=== PATIENT | female | born 1990 | race American Indian/Alaskan Native ===

== ENCOUNTER 2017-04-27 02:56 | Emergency (ER) | payer OTHER ==
[2017-04-27 07:21] LABS: Bacteria,Urine 1+ /HPF (Negative); Bilirubin,Urine NEG (Negative); Blood,Urine NEG (Negative); Color,Urine Yellow (Yellow); Mucus,Urine FEW /HPF; Nitrite,Urine NEG (Negative); Protein,Urine <15 mg/dL mg/dL (Negative); Urobilinogen,Urine < 2.0 mg/dL (<2.0)
[2017-04-27 07:22] LABS: HCG Qualitative,Urine Negative (Negative)
[2017-04-27 08:18] LABS: Hematocrit 35.6 % (30.3-42.9); Hemoglobin 11.1 gm/dl (10.1-14.3); Mean Corpuscular HGB Conc 31 % (30-34); Mean Corpuscular Hemoglobin 21 pg (28-32); Mean Corpuscular Volume 69 fl (79-97); Platelet Count 328 K/mm3 (140-440); Red Blood Count 5.19 M/mm3 (3.65-5.03)
[2017-04-27 08:39] LABS: Alanine Aminotransferase 12 units/L (7-56); Albumin 4.2 g/dL (3.9-5); BUN/Creatinine Ratio 17; Blood Urea Nitrogen 12 mg/dL (7-17); Calcium 9.1 mg/dL (8.4-10.2); Hemolysis Index 3; Lipase 28 units/L (13-60)
[2017-04-27 08:44] LABS: Bilirubin,Direct < 0.2 mg/dL (0-0.2)
[2017-04-27] MEDS ORDERED: NACL 0.9% 1000 ML 1,000 ML IV ONE (08:59)
--- NOTE | 2017-04-27 09:04 | Emergency Department Report ---
ED Abdominal Pain HPI - General Chief Complaint: Urogenital-Female Stated Complaint: ABDOMINAL,BACK PAIN Time Seen by Provider: 04/27/17 08:41 Source: patient Mode of arrival: Ambulatory Limitations: No Limitations - History of Present Illness Initial Comments: This is a 26-year-old female nontoxic, well nourished in appearance, no acute signs of distress presents to the ED with c/o of pelvic pain and umbilical pain 1 week. Patient describes pain as aching and sensation of fluttering. Patient states has nausea but denies any vomiting. Patient also is complaining about vaginal discharge and describes it as white in color with foul odor. Patient stated she had protective sex prior to discharge. Patient denies any chest pain, shortness of breath, fever, chills, vomiting, dysuria, polyuria, hematuria, headache, stiff neck, numbness, tingling or back pain. Patient states allergies to Ceclor. Past medical history includes endometriosis. MD Complaint: abdominal pain -: week(s) (1) Location: periumbilical Radiation: none Migration to: no migration Severity: mild Severity scale (0 -10): 8 Quality: aching, other (fluttering) Consistency: constant Improves With: nothing Worsens With: nothing Associated Symptoms: nausea. denies: vomiting, diarrhea, fever, chills, constipation, dysuria, hematemesis, hematochezia, melena, hematuria, anorexia, syncope - Related Data Previous Rx's Medication Instructions Recorded Last Taken Type Albuterol Sulfate [Ventolin HFA] 2 puff IH Q4H PRN #1 hfa.aer.ad 08/02/15 Unknown Rx Doxycycline [Vibramycin CAP] 100 mg PO Q12HR #20 capsule 08/02/15 Unknown Rx Loratadine [Claritin] 10 mg PO DAILY #10 tablet 08/02/15 Unknown Rx Promethazine /Codeine 5 ml PO Q6H PRN #120 udc 08/02/15 Unknown Rx [Phenergan/Codeine 6.25-10 mg/5 ml] metroNIDAZOLE [Flagyl] 500 mg PO Q12HR #14 tab 04/27/17 Unknown Rx Allergies Allergy/AdvReac Type Severity Reaction Status Date / Time cefaclor [From Ceclor] Allergy Unknown Verified 08/01/15 21:52 ED Review of Systems ROS: Stated complaint: ABDOMINAL,BACK PAIN Other details as noted in HPI Constitutional: denies: chills, fever Eyes: denies: eye pain, eye discharge, vision change ENT: denies: ear pain, throat pain Respiratory: denies: cough, shortness of breath, wheezing Cardiovascular: denies: chest pain, palpitations Endocrine: no symptoms reported Gastrointestinal: denies: abdominal pain, nausea, diarrhea Genitourinary: discharge. denies: urgency, dysuria Musculoskeletal: denies: back pain, joint swelling, arthralgia Skin: denies: rash, lesions Neurological: denies: headache, weakness, paresthesias Psychiatric: denies: anxiety, depression Hematological/Lymphatic: denies: easy bleeding, easy bruising ED Past Medical Hx - Past Medical History Previous Medical History?: Yes Additional medical history: endometriosis - Surgical History Past Surgical History?: Yes Additional Surgical History: surgery for endometriosis - Social History Smoking Status: Never Smoker - Medications Home Medications: Home Medications Medication Instructions Recorded Confirmed Last Taken Type Albuterol Sulfate [Ventolin HFA] 2 puff IH Q4H PRN #1 hfa.aer.ad 08/02/15 Unknown Rx Doxycycline [Vibramycin CAP] 100 mg PO Q12HR #20 capsule 08/02/15 Unknown Rx Loratadine [Claritin] 10 mg PO DAILY #10 tablet 08/02/15 Unknown Rx Promethazine /Codeine 5 ml PO Q6H PRN #120 udc 08/02/15 Unknown Rx [Phenergan/Codeine 6.25-10 mg/5 ml] metroNIDAZOLE [Flagyl] 500 mg PO Q12HR #14 tab 04/27/17 Unknown Rx ED Physical Exam - General Limitations: No Limitations General appearance: alert, in no apparent distress - Head Head exam: Present: atraumatic, normocephalic, normal inspection - Eye Eye exam: Present: normal appearance, PERRL, EOMI. Absent: scleral icterus, conjunctival injection, nystagmus, periorbital swelling, periorbital tenderness Pupils: Present: normal accommodation - ENT ENT exam: Present: normal exam, normal orophraynx, mucous membranes moist, TM's normal bilaterally, normal external ear exam - Neck Neck exam: Present: normal inspection, full ROM. Absent: tenderness, meningismus, lymphadenopathy, thyromegaly - Respiratory Respiratory exam: Present: normal lung sounds bilaterally. Absent: respiratory distress, wheezes, rales, rhonchi, stridor, chest wall tenderness, accessory muscle use, decreased breath sounds, prolonged expiratory - Cardiovascular Cardiovascular Exam: Present: regular rate, normal rhythm, normal heart sounds. Absent: bradycardia, tachycardia, irregular rhythm, systolic murmur, diastolic murmur, rubs, gallop - GI/Abdominal GI/Abdominal exam: Present: soft, tenderness (pelvic and periumbilical), normal bowel sounds. Absent: distended, guarding, rebound, rigid, diminished bowel sounds - Expanded GI/Abdominal Exam Expanded GI/Abdominal exam: Absent: psoas sign, obturator sign, heel tap sign, Beatty's sign, Rovsing's sign, tenderness at Mcburney's Point, ascites - Rectal Rectal exam: Present: deferred - External exam: Present: normal external exam, other (nailing machine feeder Che RN present during exam). Absent: erythema, swelling, lesions, lacerations, ecchymosis, bleeding Speculum exam: Present: normal speculum exam, cervical discharge (yellow/white with foul odor), other (nailing machine feeder Magdalene RN present during exam). Absent: erythema, vaginal discharge, vaginal bleeding, foreign body, tissue, laceration Bi-manual exam: Present: normal bi-manual exam, other (nailing machine feeder Magdalene RN present during exam). Absent: cervical motion tendernes, adnexal tenderness, adnexal mass, uterine enlargement, uterine tenderness - Extremities Exam Extremities exam: Present: normal inspection, full ROM, normal capillary refill. Absent: tenderness, pedal edema, joint swelling, calf tenderness - Back Exam Back exam: Present: normal inspection, full ROM. Absent: tenderness, CVA tenderness (R), CVA tenderness (L), muscle spasm, paraspinal tenderness, vertebral tenderness, rash noted - Neurological Exam Neurological exam: Present: alert, oriented X3, CN II-XII intact, normal gait, reflexes normal - Psychiatric Psychiatric exam: Present: normal affect, normal mood - Skin Skin exam: Present: warm, dry, intact, normal color. Absent: rash ED Course Vital Signs 04/27/17 04/27/17 04:16 05:21 Temperature 98.1 F 98.1 F Pulse Rate 76 78 Respiratory 18 20 Rate Blood Pressure 110/57 110/57 O2 Sat by Pulse 100 100 Oximetry - Reevaluation(s) Reevaluation #1: 04/27/17 09:06 Follow-up with a primary care doctor in 3-5 days or if symptoms worsen and continue return to emergency room as soon as possible. ED Medical Decision Making - Lab Data Result diagrams: 04/27/17 07:58 04/27/17 07:58 - Medical Decision Making This is a 26-year-old female that presents with abdominal pain and BV. Patient is stable and was examined by me. Labs obtained within normal limits. CT with contrast of abdomen/pelvis has been obtained and dictated a radiologist with normal exam. Patient is notified of x-ray results with no questions noted by the patient. Patient received 1 L of normal saline and 15 mg Toradol which persisted his symptoms of abdominal/pelvis pain has been improving and is subsided. Patient reieved Flagyl at d/c and was instructed not to consume any alcohol while taking Flagyl. A by mouth challenge has been obtained and patient are well with no nausea or vomiting. Wet prep obtained and gonorrhea chlamydia pending. Patient was instructed to return in 3 days to obtain results of gonorrhea or chlamydia. Patient states she does not want be treated empirically as she stated she is not concerned about STD related. Patient was instructed Follow-up with a primary care doctor in 3-5 days or if symptoms worsen and continue return to emergency room as soon as possible. At time time of discharge, the patient does not seem toxic or ill in appearance. No acute signs of distress noted. Patient agrees to discharge treatment plan of care. No further questions noted by the patient. This chart is dictated with using Your[employer] Dictation Program Critical care attestation.: If time is entered above; I have spent that time in minutes in the direct care of this critically ill patient, excluding procedure time. ED Disposition Clinical Impression: Bacterial vaginosis Abdominal pain Qualifiers: Abdominal location: unspecified location Qualified Code(s): R10.9 - Unspecified abdominal pain Disposition: TO HOME OR SELFCARE Is pt being admited?: No Does the pt Need Aspirin: No Condition: Stable Instructions: Metronidazole (By mouth), Bacterial Vaginosis (ED) Additional Instructions: Follow-up with a primary care doctor in 3-5 days or if symptoms worsen and continue return to emergency room as soon as possible. Do not consume any alcohol while taking antibiotics Prescriptions: metroNIDAZOLE [Flagyl] 500 mg PO Q12HR #14 tab Referrals: [facility] [Other] - 3-5 Days PRIMARY CARE, [Referring] - 3-5 Days [facility] [Outside] - 3-5 Days [facility] [Outside] - 3-5 Days Forms: STI Treatment and Prevention, Work/School Release Form(ED)
[2017-04-27 09:38] LABS: Total Cells Counted 100
[2017-04-27 09:39] LABS: Anisocytosis 1+; Basophils % (Manual) 0 % (0.0-1.8); Eosinophils % (Manual) 0 % (0.0-4.3); Hypochromasia 1+; Ovalocytes 1+; Stomatocytes Few; Target Cells Few
--- NOTE | 2017-04-27 11:30 | Cat Scan Report ---
CT ABDOMEN PELVIS WITH CONTRAST: HISTORY: abdominal pain. COMPARISON: none. TECHNIQUE: Helical CT in 1.25mm intervals following IV contrast. Sagittal and coronal reconstructions. FINDINGS: Lung bases: Normal. Liver: Normal. Biliary system: Normal. Pancreas: Normal. Spleen: Normal. Kidneys/ureters/bladder: Normal. Adrenal glands: Normal. Aorta: Normal. Intestines: Normal. Appendix: Normal. Pelvic viscera: Normal. Ascites: None. Adenopathy: None. Musculoskeletal: Normal. IMPRESSION: Unremarkable CT scan of the abdomen and pelvis with contrast.
[2017-04-27 12:18] VITALS: BP 127/68
== END 2017-04-27 12:20 | disposition home or self-care (01) ==
LOC: ED 02:56
DX: N76.0 Acute vaginitis (principal); B96.89 Other specified bacterial agents as the cause of diseases classified elsewhere; Z88.1 Allergy status to other antibiotic agents
CPT/HCPCS: 36415; 74177; 80048; 80074; 81001; 81025; 82150; 83690; 85007; 85025; 87086; 87210; 87591; 96360; 99284; J7030; Q9967

== ENCOUNTER 2018-01-09 20:51 | Emergency (ER) | payer OTHER ==
[2018-01-09 21:30] VITALS: BP 158/81
[2018-01-09] MEDS ORDERED: MOTRIN PO ONE ×2 (21:44→21:46)
--- NOTE | 2018-01-09 22:18 | Emergency Department Report ---
HPI - General Chief Complaint: Upper Respiratory Infection Time Seen by Provider: 01/09/18 22:07 - HPI HPI: Room 29 The patient is a 27-year-old female presenting with a chief complaint of cough and body aches. The patient states last night she developed cough productive of brown sputum as well as subjective fever and body aches. Patient states she had a sore throat yesterday which is still present currently but does not hurt as bad. Patient admits to slight rhinorrhea. Patient denies any sick contacts. Location: See above Duration: Onset yesterday Quality: Body aches Severity: Moderate Modifying factors: [see above] Context: [see above] Mode of transportation: Unknown ED Past Medical Hx - Past Medical History Previous Medical History?: No Additional medical history: endometriosis - Surgical History Additional Surgical History: surgery for endometriosis - Family History Family history: no significant - Social History Smoking Status: Never Smoker Substance Use Type: None (denies illicit drug use), Alcohol (occasional) - Medications Home Medications: Home Medications Medication Instructions Recorded Confirmed Last Taken Type Albuterol Sulfate [Ventolin HFA] 2 puff IH Q4H PRN #1 hfa.aer.ad 08/02/15 Unknown Rx Doxycycline [Vibramycin CAP] 100 mg PO Q12HR #20 capsule 08/02/15 Unknown Rx Loratadine [Claritin] 10 mg PO DAILY #10 tablet 08/02/15 Unknown Rx Promethazine /Codeine 5 ml PO Q6H PRN #120 udc 08/02/15 Unknown Rx [Phenergan/Codeine 6.25-10 mg/5 ml] metroNIDAZOLE [Flagyl] 500 mg PO Q12HR #14 tab 04/27/17 Unknown Rx Azithromycin [Zithromax Z-EMA] 0 mg PO DAILY #6 tab 01/09/18 Unknown Rx Ibuprofen [Motrin 800 MG tab] 800 mg PO Q8HR PRN #20 tablet 01/09/18 Unknown Rx traMADol [Ultram] 50 mg PO Q6HR PRN #10 tablet 01/09/18 Unknown Rx ED Review of Systems ROS: Stated complaint: SOB,FEVER,SORE THROAT Other details as noted in HPI Constitutional: fever (subjective), malaise Eyes: denies: eye pain ENT: throat pain Respiratory: cough Cardiovascular: denies: chest pain Endocrine: no symptoms reported Gastrointestinal: denies: abdominal pain Genitourinary: denies: dysuria Musculoskeletal: myalgia Neurological: headache Physical Exam - Physical Exam Vital Signs: Vital Signs 01/09/18 01/09/18 21:27 22:01 Temperature 99.2 F Pulse Rate 101 H Respiratory 20 18 Rate Blood Pressure 158/81 O2 Sat by Pulse 100 Oximetry Physical Exam: GENERAL: The patient is well-developed well-nourished female sitting in chair not appearing to be in acute distress. [] HEENT: Normocephalic. Atraumatic. Extraocular motions are intact. Patient has moist mucous membranes. Oropharynx clear. NECK: Supple. No meningitic signs are noted. Trachea midline CHEST/LUNGS: Clear to auscultation. There is no respiratory distress noted. HEART/CARDIOVASCULAR: Regular. There is no tachycardia. There is no gallop rub or murmur. ABDOMEN: There is no abdominal distention. SKIN: There is no rash. There is no edema. There is no diaphoresis. NEURO: The patient is awake, alert, and oriented. The patient is cooperative. The patient has normal speech MUSCULOSKELETAL: There is no evidence of acute injury. ED Course Vital Signs 01/09/18 01/09/18 21:27 22:01 Temperature 99.2 F Pulse Rate 101 H Respiratory 20 18 Rate Blood Pressure 158/81 O2 Sat by Pulse 100 Oximetry ED Medical Decision Making - Lab Data Laboratory Tests 01/09/18 22:00 Influenza A (Rapid) Negative Influenza B (Rapid) Negative - Radiology Data Radiology results: image reviewed (chest x-ray) interpreted by me: Chest x-ray-no focal infiltrates, no pneumothorax - Differential Diagnosis acute bronchitis, influenza, URI Critical care attestation.: If time is entered above; I have spent that time in minutes in the direct care of this critically ill patient, excluding procedure time. ED Disposition Clinical Impression: Acute bronchitis, Sore throat Disposition: - TO HOME OR SELFCARE Is pt being admited?: No Does the pt Need Aspirin: No Condition: Stable Instructions: Acute Bronchitis (ED) Additional Instructions: Return to the emergency department immediately should you develop worsening symptoms, fever, inability to tolerate food or liquid or any other concerns. Prescriptions: Azithromycin [Zithromax Z-EMA] 0 mg PO DAILY #6 tab Ibuprofen [Motrin 800 MG tab] 800 mg PO Q8HR PRN #20 tablet PRN Reason: Pain, Moderate (4-6) traMADol [Ultram] 50 mg PO Q6HR PRN #10 tablet PRN Reason: Pain Referrals: [facility] [Outside] - 3-5 Days Time of Disposition: 23:56
--- NOTE | 2018-01-09 22:37 | XRay Report ---
FINAL REPORT EXAM: XR CHEST ROUTINE 2V HISTORY: cough TECHNIQUE: Frontal and lateral chest x-ray. PRIORS: 02 August 2015. FINDINGS: Cardiac and mediastinal silhouette within normal limits. Lungs are normally expanded and grossly clear. No apparent pleural effusion or pneumothorax. Bony thorax grossly unremarkable. IMPRESSION: 1. No acute consolidation.
== END 2018-01-09 23:59 | disposition home or self-care (01) ==
LOC: ED 20:51
DX: J02.9 Acute pharyngitis, unspecified (principal); J20.9 Acute bronchitis, unspecified; Z88.8 Allergy status to other drugs, medicaments and biological substances
CPT/HCPCS: 71046; 87400

== ENCOUNTER 2020-03-12 13:18 | Emergency (ER) | payer BC ==
--- NOTE | 2020-03-12 13:31 | Event Note ---
ED Screening Note ED Screening Note: lightheaded +nausea no vomiting no diarrhea began having vaginal bleeding today states she has only went through two pads today LNMP: had spotting in february states she has very irregular cycles states she had a procedure for endometriosis This initial assessment/diagnostic orders/clinical plan/treatment(s) is/are subject to change based on patients health status, clinical progression and re- assessment by fellow clinical providers in the ED. Further treatment and workup at subsequent clinical providers discretion. Patient/guardian urged not to elope from the ED as their condition may be serious if not clinically assessed and managed. Initial orders include: cbc, cmp, UA, hcg
[2020-03-12 14:23] LABS: Hematocrit 33.3 % (30.3-42.9); Hemoglobin 11.4 gm/dl (10.1-14.3); Mean Corpuscular HGB Conc 34 % (30-34); Platelet Count 345 K/mm3 (140-440); Red Blood Count 4.85 M/mm3 (3.65-5.03); Red Cell Distribution Width 15.2 % (13.2-15.2)
[2020-03-12 14:38] LABS: Mean Corpuscular Volume 69 fl (79-97)
[2020-03-12 15:10] LABS: Anisocytosis 1+; Basophils % (Manual) 0 % (0.0-1.8); Hypochromasia 1+; Total Cells Counted 100
[2020-03-12 15:11] LABS: Platelet Estimate Consistent w Auto
[2020-03-12 16:22] LABS: Bilirubin,Urine NEG (Negative); Blood,Urine LG (Negative); Color,Urine Yellow (Yellow); Mucus,Urine FEW /HPF; Protein,Urine <15 mg/dL mg/dL (Negative); Urobilinogen,Urine < 2.0 mg/dL (<2.0)
[2020-03-12 16:35] LABS: Alanine Aminotransferase 16 units/L (7-56); Blood Urea Nitrogen 10 mg/dL (7-17); Calcium 9.2 mg/dL (8.4-10.2); Hemolysis Index 10
[2020-03-12 16:38] LABS: BUN/Creatinine Ratio 14
== END 2020-03-12 18:00 | disposition left against medical advice (07) ==
LOC: ED 13:18
DX: R42 Dizziness and giddiness (principal); Z53.21 Procedure and treatment not carried out due to patient leaving prior to being seen by health care provider
CPT/HCPCS: 36415; 80053; 81001; 84702; 85007; 85025